=== PATIENT | male | born 1950 | race Caucasian/White ===

== ENCOUNTER 2016-12-13 16:55 | Emergency (ER) | payer SELFPAY | END 2016-12-13 21:47 | disposition home or self-care (01) | LOC: ER1 16:55 | DX: S16.1XXA Strain of muscle, fascia and tendon at neck level, initial encounter (principal); S09.90XA Unspecified injury of head, initial encounter; E11.9 Type 2 diabetes mellitus without complications; I10 Essential (primary) hypertension; V43.52XA Car driver injured in collision with other type car in traffic accident, initial encounter | CPT/HCPCS: 70450; 70486; 72125; 99283 ==

== ENCOUNTER → 2021-07-02 | Outpatient (CLI) | payer MEDICARE | LOC: RAD 10:07 | DX: M25.512 Pain in left shoulder (principal); M25.511 Pain in right shoulder; M19.012 Primary osteoarthritis, left shoulder; M19.011 Primary osteoarthritis, right shoulder | CPT/HCPCS: 73030; 73060 ==

== ENCOUNTER → 2022-02-03 | Outpatient (CLI) | payer MEDICARE, OTHER | LOC: HEART 5 13:41 | DX: R55 Syncope and collapse (principal) ==